=== PATIENT | female | born 1945 | race Hispanic/Latino ===

== ENCOUNTER 2017-09-04 14:38 | Inpatient (IN) | payer MEDICARE ==
[2017-09-04 19:24] VITALS: BMI 19.5
--- NOTE | 2017-09-04 21:46 | CP.PCM.HP ---
History of Present Illness - History of Present Illness History of Present Illness: PMD: Hawa Gary MD Chief complaint: Fall with pain to the left hip: The Patient was seen and examined on the Rehab Unit HPI: This is a 71 years old female with Hx of Scleraderma affecting the esophagus causing GIRD. 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 She under went a left Total Hip replacementon09/01/17 and is now transferred to the [facility] Re[facility] Unit for continued treatment and physical therapy. She refers mild lightheadedness. PMH: Scleroderma dx 23yeasr;HTN; Gird PSH: Appendectomy; Mitral valve repair; 4 finger fused fused on the right hand SH: No Alcohol; No illegal drug use; former smoker, live with family FH: State: No known family hx Allergies: NKDA Medication: Reviewed Present on Admission - Present on Admission Any Indicators Present on Admission: No History of DVT/PE: No History of Uncontrolled Diabetes: No Urinary Catheter: No Decubitus Ulcer Present: No Review of Systems - Constitutional Constitutional: absent: Anorexia, Chills, Fever, Headache, Lethargy - EENT Eyes: Requires Corrective Lenses. absent: Blurred Vision, Diplopia, Photophobia Ears: absent: Decreased Hearing, Ear Discharge, Tinnitus Nose/Mouth/Throat: absent: Epistaxis, Nasal Congestion, Nasal Discharge, Sinus Pain, Sinus Pressure - Cardiovascular Cardiovascular: absent: Chest Pain, Dyspnea, Edema, Leg Ulcers - Respiratory Respiratory: absent: Cough, Dyspnea, Wheezing, Stridor - Gastrointestinal Gastrointestinal: absent: Belching, Diarrhea, Nausea, Vomiting - Genitourinary Genitourinary: absent: Dysuria, Flank Pain, Urinary Frequency - Musculoskeletal Musculoskeletal: absent: Back Pain, Muscle Weakness, Stiffness - Integumentary Integumentary: absent: Pruritus, Rash, Skin Ulcer, Sores, Striae, Swelling - Neurological Neurological: absent: Confusion, Focal Weakness, Weakness - Psychiatric Psychiatric: absent: Anxiety, Depression, Panic Attacks - Endocrine Endocrine: absent: Palpitations, Polydipsia, Polyphagia, Polyuria - Hematologic/Lymphatic Hematologic: absent: Easy Bleeding, Easy Bruising Past Patient History - Past Medical History & Family History Past Medical History?: Yes - Past Social History Smoking Status: Former Smoker Chewing Tobacco Use: No Alcohol: None Drugs: Denies Home Situation {Lives}: With Family - CARDIAC Hx Hypotension: Yes - PULMONARY Hx Respiratory Disorders: No - NEUROLOGICAL Hx Neurological Disorder: No - HEENT Hx HEENT Problems: No - ENDOCRINE/METABOLIC Hx Endocrine Disorders: No - HEMATOLOGICAL/ONCOLOGICAL Hx Blood Disorders: No - INTEGUMENTARY Hx Dermatological Problems: No - MUSCULOSKELETAL/RHEUMATOLOGICAL Hx Musculoskeletal Disorders: Yes Other/Comment: Scleroderma - GASTROINTESTINAL Hx Gastroesophageal Reflux: Yes - GENITOURINARY/GYNECOLOGICAL Hx Genitourinary Disorders: No - PSYCHIATRIC Hx Psychophysiologic Disorder: No - SURGICAL HISTORY Hx Appendectomy: Yes - ANESTHESIA Hx Anesthesia: Yes Hx Anesthesia Reactions: No Meds Allergies/Adverse Reactions: Allergies Allergy/AdvReac Type Severity Reaction Status Date / Time No Known Allergies Allergy Verified 09/04/17 19:24 Physical Exam - Constitutional Appears: No Acute Distress - Head Exam Head Exam: ATRAUMATIC, NORMAL INSPECTION, NORMOCEPHALIC - Eye Exam Eye Exam: EOMI, Normal appearance Pupil Exam: PERRL - ENT Exam ENT Exam: Mucous Membranes Moist, Normal Exam - Neck Exam Neck exam: Positive for: Normal Inspection, Tenderness - Respiratory Exam Respiratory Exam: Rales, Rhonchi, Wheezes - Cardiovascular Exam Cardiovascular Exam: REGULAR RHYTHM, RRR, +S1, +S2. absent: Gallop, JVD - GI/Abdominal Exam GI & Abdominal Exam: Normal Bowel Sounds, Soft. absent: Mass, Organomegaly, Tenderness - Rectal Exam Rectal Exam: Deferred - Extremities Exam Additional comments: Left hip with post surgery Total Hip Replacemen dressing , cleadn and dry. - Back Exam Back exam: NORMAL INSPECTION. absent: CVA tenderness (L), CVA tenderness (R) - Neurological Exam Neurological exam: Alert, CN II-XII Intact, Oriented x3, Reflexes Normal - Psychiatric Exam Psychiatric exam: Normal Affect, Normal Mood - Skin Skin Exam: Dry, Intact, Normal Color, Warm Results - Labs Result Diagrams: 09/05/17 05:35 09/05/17 05:35 Assessment & Plan - Assessment and Plan (Free Text) Assessment: #. Right hip Fx s/p Left total hip replacement #. HTN #. Anxiety/Depressive disorder #. Anemia #, Hypekalemia #. Scleroderma Plan: 71 years old female with Hx of Scleraderma affecting the esophagus causing GIRD. 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 She under went a left Total Hip replacementon09/01/17 and is now transferred to the [facility] Unit for continued treatment and physical therapy. She refers mild lightheadedness. #. Right hip Fx s/p Left total hip replacement #. HTN - Amlopidine/Metoprolol/Lisinopril - Follow blood pressure #. Anxiety/Depressive disorder - Prozac #. Anemia - Iron panel - B12 - Folate - follow Hb #. Hyperkalemia - follow electrolytes #. Scleroderma affecting esophagus - Carafate/Pantoprazole #. DVT prophylaxis with Lovenox #. Code Status: Full - Date & Time Date: 09/04/17 Time: 21:46
[2017-09-04] MEDS: Pravastatin Sodium 40 MG TAB PO SCH (22:28)
[2017-09-04] MEDS: Metoprolol Succinate 50 mg XL Tab PO SCH (22:33)
[2017-09-05] MEDS: Pantoprazole 40 mg Susp UD PO SCH (05:49)
[2017-09-05 06:40] LABS: BASO % 0.3 % (0.0-2.0); EOS # 0.1 K/uL (0.0-0.7); EOS % 1.2 % (0.0-4.0); LYMPH # 1.5 K/uL (1.0-4.3); LYMPH % 31.4 % (20.0-40.0); MEAN CELL VOLUME 85.4 fl (81.0-99.0); MEAN CORPUSCULAR HEMOGLOBIN 28.7 pg (27.0-31.0); MEAN CORPUSCULAR HGB CONC 33.7 g/dL (33.0-37.0); MEAN PLATELET VOLUME 9.2 fl (7.2-11.7); MONO # 0.5 K/uL (0.0-0.8); MONO % 11.2 % (0.0-10.0); NEUT # 2.7 K/uL (1.8-7.0); NEUT % 55.9 % (50.0-75.0); NRBC % 0.1 % (0.0-0.0); RBC 3.13 Mil/uL (3.80-5.20); RED CELL DISTRIBUTION WIDTH 14.7 % (11.5-14.5); WHITE BLOOD COUNT 4.9 K/uL (4.8-10.8)
[2017-09-05 06:43] LABS: INR 1.1 (0.9-1.2); PARTIAL THROMBOPLASTIN TIME 34.2 Seconds (25.6-37.1); PROTHROMBIN TIME 11.9 Seconds (9.8-13.1)
[2017-09-05 06:44] LABS: ALBUMIN 3.7 g/dL (3.5-5.0); ALT/SGPT 21 U/L (9-52); AST/SGOT 27 U/L (14-36); BLOOD UREA NITROGEN 10 mg/dl (7-17); CALCIUM 8.9 mg/dL (8.4-10.2); GFR AFRICAN-AMERICAN > 60; GFR NON-AFRICAN AMERICAN > 60
[2017-09-05] MEDS ORDERED: Enoxaparin 40 mg Syringe SC SCH (09:00)
[2017-09-05] MEDS: Enoxaparin 40 mg Syringe SC SCH (09:55)
--- NOTE | 2017-09-05 13:35 | PSY.TMCNF ---
Nursing - Vital Signs Vital Signs (Last 8 hours): Vital Signs 09/05/17 09/05/17 09/05/17 08:27 08:28 09:00 Temperature Pulse Rate 70 70 70 Respiratory Rate Blood Pressure 129/66 129/69 129/69 O2 Sat by Pulse Oximetry 09/05/17 10:00 Temperature 96 F L Pulse Rate 75 Respiratory 20 Rate Blood Pressure 129/79 O2 Sat by Pulse 98 Oximetry Pain: 0 - Medications/Other Issues Comment: Pt at high nutritional risk. goals: 1. Pt to consume 75-100% of meals. 2. Deter wt loss. Follow-up due on 09/10/2017 - Bladder Management Bladder Pattern: Normal - Bowel Management Bowel Pattern: Normal Physical Therapy - Ambulation Distance (ft.): 120 - Pain Management Techniques: Inactivity Occupational Therapy - Arousal/Attention/Orientation Patient Orientation: Person, Place, Time - Pain Alleviating Techniques: Inactivity Nutrition - Current Diet Current Diet/ Supplement/ Feedings: Heart healthy diet ensure plus 8 ounces 2 per day - Appetite Percent Meal Consumed: 50-74% - Assessment/Goals/Time Frame Assessment/Goals/Time Frame: Pt at high nutritional risk. goals: 1. Pt to consume 75-100% of meals. 2. Deter wt loss. Follow-up due on 09/10/2017 - Provider Provider: Oumou Ruiz RD Case Management - Discharge Plan Discharge Plan: Home with significant other/family Rehabilitation Plan - Treatment Plan Treatment Plan: Physical Therapy, Occupational Therapy, Dietary, Patient/Family Education - Discharge Plan Discharge to: Home
--- NOTE | 2017-09-05 14:14 | CP.PCM.CON ---
History of Present Illness - History of Present Illness History of Present Illness: Dr Power PMR consultation on Taniya Fagan, born 1945 who has been admitted to [facility] for acute inpatient rehabilitation. She had fallen and suffered a right hip fracture and underwent ORIF. Post op making great progress and on only tylenol for pain. She suffers from Scleroderma and has had finger fusion. She has some organ involvement as well of GI and lungs. + weight loss Review of Systems - Constitutional Constitutional: Weight Loss. absent: Daytime Sleepiness, Excessive Sweating, Headache - EENT Eyes: absent: Blurred Vision Ears: absent: Ear Discharge Nose/Mouth/Throat: absent: Nasal Congestion - Cardiovascular Cardiovascular: absent: Chest Pain - Respiratory Respiratory: absent: Dyspnea - Gastrointestinal Gastrointestinal: absent: Abdominal Pain - Musculoskeletal Musculoskeletal: Deformity. absent: Back Pain, Numbness - Integumentary Integumentary: absent: Bleeding Lesions - Neurological Neurological: absent: Abnormal Movements Past Patient History - Past Medical History & Family History Past Medical History?: Yes - Past Social History Smoking Status: Former Smoker Chewing Tobacco Use: No Alcohol: None Drugs: Denies Home Situation {Lives}: With Family - CARDIAC Hx Hypotension: Yes - PULMONARY Hx Respiratory Disorders: No - NEUROLOGICAL Hx Neurological Disorder: No - HEENT Hx HEENT Problems: No - ENDOCRINE/METABOLIC Hx Endocrine Disorders: No - HEMATOLOGICAL/ONCOLOGICAL Hx Blood Disorders: No - INTEGUMENTARY Hx Dermatological Problems: No - MUSCULOSKELETAL/RHEUMATOLOGICAL Hx Musculoskeletal Disorders: Yes Other/Comment: Scleroderma - GASTROINTESTINAL Hx Gastroesophageal Reflux: Yes - GENITOURINARY/GYNECOLOGICAL Hx Genitourinary Disorders: No - PSYCHIATRIC Hx Psychophysiologic Disorder: No - SURGICAL HISTORY Hx Appendectomy: Yes - ANESTHESIA Hx Anesthesia: Yes Hx Anesthesia Reactions: No Meds Allergies/Adverse Reactions: Allergies Allergy/AdvReac Type Severity Reaction Status Date / Time No Known Allergies Allergy Verified 09/04/17 19:24 - Medications Medications: Current Medications Acetaminophen (Tylenol 325mg Tab) 650 mg PO Q6 PRN PRN Reason: Other Last Admin: 09/05/17 11:10 Dose: 650 mg Alprazolam (Xanax) 0.25 mg PO HS PRN PRN Reason: Insomnia Stop: 09/11/17 21:27 Last Admin: 09/04/17 22:28 Dose: 0.25 mg Amlodipine Besylate (Norvasc) 5 mg PO BID [facility] Last Admin: 09/05/17 08:28 Dose: 5 mg Aspirin (Aspirin Chewable) 81 mg PO DAILY [facility] Last Admin: 09/05/17 08:28 Dose: 81 mg Enoxaparin Sodium (Lovenox) 40 mg SC DAILY [facility] PRN Reason: Protocol Last Admin: 09/05/17 09:55 Dose: 40 mg Fluoxetine HCl (Prozac) 20 mg PO DAILY [facility] Last Admin: 09/05/17 08:28 Dose: 20 mg Lisinopril (Zestril) 10 mg PO DAILY [facility] Last Admin: 09/05/17 08:27 Dose: 10 mg Metoprolol Succinate (Toprol Xl) 50 mg PO [facility] Last Admin: 09/04/17 22:33 Dose: Not Given Ondansetron HCl (Zofran Tab) 4 mg PO Q4 PRN PRN Reason: Nausea/Vomiting Pantoprazole Sodium (Protonix Susp) 40 mg PO DAILY@0630 [facility] Last Admin: 09/05/17 05:49 Dose: 40 mg Pravastatin Sodium (Pravachol) 40 mg PO [facility] Last Admin: 09/04/17 22:28 Dose: 40 mg Sucralfate (Carafate Tab) 1 gm PO BID [facility] Last Admin: 09/05/17 08:27 Dose: 1 gm Tramadol HCl (Ultram) 50 mg PO Q6 PRN PRN Reason: Pain, severe (8-10) Physical Exam - Constitutional Appears: Non-toxic, No Acute Distress - Head Exam Head Exam: ATRAUMATIC, NORMAL INSPECTION, NORMOCEPHALIC - Eye Exam Eye Exam: EOMI - ENT Exam ENT Exam: Mucous Membranes Moist - Respiratory Exam Respiratory Exam: NORMAL BREATHING PATTERN - Cardiovascular Exam Cardiovascular Exam: REGULAR RHYTHM - GI/Abdominal Exam GI & Abdominal Exam: absent: Distended - Extremities Exam Extremities exam: Negative for: calf tenderness - Neurological Exam Neurological exam: Alert, CN II-XII Intact, Oriented x3 - Psychiatric Exam Psychiatric exam: Normal Affect, Normal Mood - Skin Skin Exam: Warm Results - Vital Signs Recent Vital Signs: Last Vital Signs Temp 96 F L 09/05/17 10:00 Pulse 75 09/05/17 10:00 Resp 20 09/05/17 10:00 BP 129/79 09/05/17 10:00 Pulse Ox 98 09/05/17 10:00 - Labs Result Diagrams: 09/05/17 05:35 09/05/17 05:35 Labs: Laboratory Results - last 24 hr 09/05/17 09/05/17 09/05/17 05:35 05:35 05:35 WBC 4.9 RBC 3.13 L Hgb 9.0 L Hct 26.7 L MCV 85.4 MCH 28.7 MCHC 33.7 RDW 14.7 H Plt Count 136 MPV 9.2 Neut % (Auto) 55.9 Lymph % (Auto) 31.4 Nye % (Auto) 11.2 H Eos % (Auto) 1.2 Baso % (Auto) 0.3 Neut # (Auto) 2.7 Lymph # (Auto) 1.5 Nye # (Auto) 0.5 Eos # (Auto) 0.1 Baso # (Auto) 0.0 PT 11.9 INR 1.1 APTT 34.2 Sodium 141 Potassium 5.2 H Chloride 107 Carbon Dioxide 22 Anion Gap 17 BUN 10 Creatinine 0.7 Est GFR ( Amer) > 60 Est GFR (Non-Af Amer) > 60 Random Glucose 96 Calcium 8.9 Total Bilirubin 1.6 H AST 27 ALT 21 Alkaline Phosphatase 66 Total Protein 7.2 Albumin 3.7 Globulin 3.5 Albumin/Globulin Ratio 1.0 Vitamin B12 09/05/17 10:28 WBC RBC Hgb Hct MCV MCH MCHC RDW Plt Count MPV Neut % (Auto) Lymph % (Auto) Nye % (Auto) Eos % (Auto) Baso % (Auto) Neut # (Auto) Lymph # (Auto) Nye # (Auto) Eos # (Auto) Baso # (Auto) PT INR APTT Sodium Potassium Chloride Carbon Dioxide Anion Gap BUN Creatinine Est GFR ( Amer) Est GFR (Non-Af Amer) Random Glucose Calcium Total Bilirubin AST ALT Alkaline Phosphatase Total Protein Albumin Globulin Albumin/Globulin Ratio Vitamin B12 974 H Assessment & Plan - Assessment and Plan (Free Text) Assessment: Patient with right hip ORIF doing very well Impairment code: 08.11 PT/OT to continue to help increase functional independence Team conference for d/c planning Pain: controlled Vascular: no evidence of DVT GI: No evidence of constipation or diarrhea Patient is an excellent acute rehabilitation candidate and will have focused pain management, wound care, PT, OT and recreational therapy to help facilitate a safe and appropriate d/c plan
--- NOTE | 2017-09-05 14:28 | PCM.OPOC ---
Physiatry Overall Plan of Care - Overall Plan of Care Estimated Length of Stay in Weeks: 2 Rehab Impairment: Mobility, Gait, Balance, Coordination Etiologic Diagnosis: Hip/Knee Surgery Rehab/Medical Prognosis: Good - Anticipated Interventions Physical Therapy:: Yes Occupational Therapy:: Yes Speech Therapy:: No Recreational Therapy:: Yes - Therapy Goals Bed Mobility: Supervision Ambulation: Supervision Functional Positional Changes:: Supervision - Discharge Plan Discharge Destination: Home
[2017-09-05] MEDS: Metoprolol Succinate 50 mg XL Tab PO SCH (21:41)
[2017-09-05] MEDS: Pravastatin Sodium 40 MG TAB PO SCH (21:41)
[2017-09-05 22:23] LABS: FOLATE > 20.0 ng/mL
[2017-09-06] MEDS: Pantoprazole 40 mg Susp UD PO SCH (07:00)
[2017-09-06] MEDS: Enoxaparin 40 mg Syringe SC SCH (08:41)
--- NOTE | 2017-09-06 15:28 | CP.PCM.PN ---
Subjective - Date & Time of Evaluation Date of Evaluation: 09/06/17 Time of Evaluation: 15:26 - Subjective Subjective: doing well with PT pain under control Objective - Vital Signs/Intake and Output Vital Signs (last 24 hours): Temp Pulse Resp BP Pulse Ox 98.2 F 84 22 109/61 100 09/06/17 08:39 09/06/17 08:41 09/06/17 08:39 09/06/17 08:41 09/06/17 08:39 - Medications Medications: Current Medications Acetaminophen (Tylenol 325mg Tab) 650 mg PO Q6 PRN PRN Reason: Other Last Admin: 09/06/17 08:43 Dose: 650 mg Alprazolam (Xanax) 0.25 mg PO HS PRN PRN Reason: Insomnia Stop: 09/11/17 21:27 Last Admin: 09/05/17 22:01 Dose: 0.25 mg Amlodipine Besylate (Norvasc) 5 mg PO BID [facility] Last Admin: 09/06/17 08:41 Dose: Not Given Aspirin (Aspirin Chewable) 81 mg PO DAILY [facility] Last Admin: 09/06/17 08:40 Dose: 81 mg Enoxaparin Sodium (Lovenox) 40 mg SC DAILY [facility] PRN Reason: Protocol Last Admin: 09/06/17 08:41 Dose: 40 mg Fluoxetine HCl (Prozac) 20 mg PO DAILY [facility] Last Admin: 09/06/17 08:41 Dose: 20 mg Lisinopril (Zestril) 10 mg PO DAILY [facility] Last Admin: 09/06/17 08:41 Dose: Not Given Metoprolol Succinate (Toprol Xl) 50 mg PO HS [facility] Last Admin: 09/05/17 21:41 Dose: 50 mg Ondansetron HCl (Zofran Tab) 4 mg PO Q4 PRN PRN Reason: Nausea/Vomiting Pantoprazole Sodium (Protonix Susp) 40 mg PO DAILY@0630 [facility] Last Admin: 09/06/17 07:00 Dose: 40 mg Pravastatin Sodium (Pravachol) 40 mg PO HS [facility] Last Admin: 09/05/17 21:41 Dose: 40 mg Sucralfate (Carafate Tab) 1 gm PO BID [facility] Last Admin: 09/06/17 08:40 Dose: 1 gm Tramadol HCl (Ultram) 50 mg PO Q6 PRN PRN Reason: Pain, severe (8-10) - Labs Labs: 09/05/17 05:35 09/05/17 17:44 PT 11.9 Seconds (9.8-13.1) 09/05/17 05:35 INR 1.1 (0.9-1.2) 09/05/17 05:35 APTT 34.2 Seconds (25.6-37.1) 09/05/17 05:35 - Constitutional Appears: Well, Non-toxic, No Acute Distress - Head Exam Head Exam: ATRAUMATIC, NORMAL INSPECTION - Eye Exam Eye Exam: Normal appearance Pupil Exam: NORMAL ACCOMODATION - ENT Exam ENT Exam: Mucous Membranes Moist - Neck Exam Neck Exam: Full ROM - Respiratory Exam Respiratory Exam: Clear to Ausculation Bilateral, NORMAL BREATHING PATTERN. absent: Rales, Rhonchi, Wheezes - Cardiovascular Exam Cardiovascular Exam: REGULAR RHYTHM, +S1, +S2 - GI/Abdominal Exam GI & Abdominal Exam: Soft, Normal Bowel Sounds. absent: Tenderness, Organomegaly, Rebound - Extremities Exam Extremities Exam: absent: Normal Inspection Additional comments: classic scleroderma upper ext fingers bilaterally - Neurological Exam Neurological Exam: Alert, Awake, Oriented x3 - Psychiatric Exam Psychiatric exam: Normal Affect - Skin Skin Exam: Normal Color Assessment and Plan - Assessment and Plan (Free Text) Assessment: 1. Right hip Fx s/p Left total hip replacement 2. HTN 3. Anxiety/Depressive disorder 4. Anemia 5, Hypekalemia 6. Scleroderma Plan: 71 years old female with Hx of Scleraderma affecting the esophagus causing GERD. 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 She under went a left Total Hip replacementon09/01/17 and is now transferred to the [facility] Rehab Unit for continued treatment and physical therapy. She refers mild lightheadedness. 1. Right hip Fx s/p Left total hip replacement 2. HTN - Amlopidine/Metoprolol/Lisinopril - blood pressure under control 3. Anxiety/Depressive disorder - Prozac 4. Anemia stable - Iron panel - B12 - Folate 5. Hyperkalemia - resolved 6. Scleroderma affecting esophagus - Carafate/Pantoprazole 7. DVT prophylaxis with Lovenox
[2017-09-06] MEDS: Pravastatin Sodium 40 MG TAB PO SCH (22:57)
[2017-09-06] MEDS: Metoprolol Succinate 50 mg XL Tab PO SCH (22:58)
[2017-09-07] MEDS: Pantoprazole 40 mg Susp UD PO SCH (06:30)
[2017-09-07] MEDS: Enoxaparin 40 mg Syringe SC SCH (08:04)
--- NOTE | 2017-09-07 18:23 | CP.PCM.PN ---
Subjective - Date & Time of Evaluation Date of Evaluation: 09/07/17 Time of Evaluation: 18:22 - Subjective Subjective: Patient seen in the room, doing very well and is extremely pleased with her progress and care to this point very optimistic that by next monday she will be able to d/c with just a SC or even no AD Objective - Vital Signs/Intake and Output Vital Signs (last 24 hours): Temp Pulse Resp BP Pulse Ox 97.5 F L 79 18 123/69 100 09/07/17 08:05 09/07/17 17:12 09/07/17 08:05 09/07/17 17:12 09/07/17 08:05 - Medications Medications: Current Medications Acetaminophen (Tylenol 325mg Tab) 650 mg PO Q6 PRN PRN Reason: Other Last Admin: 09/07/17 16:09 Dose: 650 mg Alprazolam (Xanax) 0.25 mg PO HS PRN PRN Reason: Insomnia Stop: 09/11/17 21:27 Last Admin: 09/06/17 22:58 Dose: 0.25 mg Amlodipine Besylate (Norvasc) 5 mg PO BID [facility] Last Admin: 09/07/17 17:12 Dose: 5 mg Aspirin (Aspirin Chewable) 81 mg PO DAILY [facility] Last Admin: 09/07/17 09:11 Dose: 81 mg Enoxaparin Sodium (Lovenox) 40 mg SC DAILY [facility] PRN Reason: Protocol Last Admin: 09/07/17 08:04 Dose: 40 mg Fluoxetine HCl (Prozac) 20 mg PO DAILY [facility] Last Admin: 09/07/17 08:05 Dose: 20 mg Lisinopril (Zestril) 10 mg PO DAILY [facility] Last Admin: 09/07/17 09:11 Dose: 10 mg Metoprolol Succinate (Toprol Xl) 50 mg PO HS [facility] Last Admin: 09/06/17 22:58 Dose: Not Given Ondansetron HCl (Zofran Tab) 4 mg PO Q4 PRN PRN Reason: Nausea/Vomiting Pantoprazole Sodium (Protonix Susp) 40 mg PO DAILY@0630 [facility] Last Admin: 09/07/17 06:30 Dose: 40 mg Pravastatin Sodium (Pravachol) 40 mg PO HS [facility] Last Admin: 09/06/17 22:57 Dose: 40 mg Sucralfate (Carafate Tab) 1 gm PO BID [facility] Last Admin: 09/07/17 17:14 Dose: Not Given Tramadol HCl (Ultram) 50 mg PO Q6 PRN PRN Reason: Pain, severe (8-10) - Labs Labs: 09/05/17 05:35 09/05/17 17:44 PT 11.9 Seconds (9.8-13.1) 09/05/17 05:35 INR 1.1 (0.9-1.2) 09/05/17 05:35 APTT 34.2 Seconds (25.6-37.1) 09/05/17 05:35
[2017-09-07] MEDS: Pravastatin Sodium 40 MG TAB PO SCH (21:25)
[2017-09-07] MEDS: Metoprolol Succinate 50 mg XL Tab PO SCH (21:27)
[2017-09-08] MEDS: Pantoprazole 40 mg Susp UD PO SCH (06:08)
[2017-09-08 06:22] LABS: HEMOGLOBIN 8.7 g/dL (12.0-16.0); MEAN CELL VOLUME 85.5 fl (81.0-99.0); MEAN CORPUSCULAR HEMOGLOBIN 28.6 pg (27.0-31.0); MEAN CORPUSCULAR HGB CONC 33.5 g/dL (33.0-37.0); RBC 3.02 Mil/uL (3.80-5.20); RED CELL DISTRIBUTION WIDTH 14.6 % (11.5-14.5); WHITE BLOOD COUNT 6.3 K/uL (4.8-10.8)
[2017-09-08 06:39] LABS: BLOOD UREA NITROGEN 15 mg/dl (7-17); CALCIUM 8.9 mg/dL (8.4-10.2); GFR AFRICAN-AMERICAN > 60; GFR NON-AFRICAN AMERICAN > 60
[2017-09-08] MEDS: Enoxaparin 40 mg Syringe SC SCH (08:30)
--- NOTE | 2017-09-08 13:29 | CP.PCM.PN ---
Subjective - Date & Time of Evaluation Date of Evaluation: 09/08/17 Time of Evaluation: 13:27 - Subjective Subjective: Patient seen in the room doing ok good right hip flexion pain is negligible at this time showered excellent rehab candidate continue current care Objective - Vital Signs/Intake and Output Vital Signs (last 24 hours): Temp Pulse Resp BP Pulse Ox 98.4 F 104 H 20 118/70 99 09/08/17 08:37 09/08/17 08:37 09/08/17 08:37 09/08/17 08:37 09/08/17 08:37 - Medications Medications: Current Medications Acetaminophen (Tylenol 325mg Tab) 650 mg PO Q6 PRN PRN Reason: Other Last Admin: 09/08/17 09:52 Dose: 650 mg Alprazolam (Xanax) 0.25 mg PO HS PRN PRN Reason: Insomnia Stop: 09/11/17 21:27 Last Admin: 09/07/17 21:29 Dose: 0.25 mg Amlodipine Besylate (Norvasc) 5 mg PO BID [facility] Last Admin: 09/08/17 08:28 Dose: Not Given Aspirin (Aspirin Chewable) 81 mg PO DAILY [facility] Last Admin: 09/08/17 08:30 Dose: 81 mg Fluoxetine HCl (Prozac) 20 mg PO DAILY [facility] Last Admin: 09/08/17 08:30 Dose: 20 mg Lisinopril (Zestril) 10 mg PO DAILY [facility] Last Admin: 09/08/17 08:28 Dose: Not Given Metoprolol Succinate (Toprol Xl) 50 mg PO HS [facility] Last Admin: 09/07/17 21:27 Dose: Not Given Ondansetron HCl (Zofran Tab) 4 mg PO Q4 PRN PRN Reason: Nausea/Vomiting Pantoprazole Sodium (Protonix Susp) 40 mg PO DAILY@0630 [facility] Last Admin: 09/08/17 06:08 Dose: 40 mg Pravastatin Sodium (Pravachol) 40 mg PO HS [facility] Last Admin: 09/07/17 21:25 Dose: 40 mg Sucralfate (Carafate Tab) 1 gm PO DAILY [facility] Tramadol HCl (Ultram) 50 mg PO Q6 PRN PRN Reason: Pain, severe (8-10) Last Admin: 09/08/17 13:20 Dose: 50 mg - Labs Labs: 09/08/17 05:30 09/08/17 05:30 PT 11.9 Seconds (9.8-13.1) 09/05/17 05:35 INR 1.1 (0.9-1.2) 09/05/17 05:35 APTT 34.2 Seconds (25.6-37.1) 09/05/17 05:35
--- NOTE | 2017-09-08 14:15 | CP.PCM.PN ---
Subjective - Date & Time of Evaluation Date of Evaluation: 09/08/17 Time of Evaluation: 11:00 - Subjective Subjective: Patient seen and examined. Claimed she was doing well. Objective - Vital Signs/Intake and Output Vital Signs (last 24 hours): Temp Pulse Resp BP Pulse Ox 98.4 F 104 H 20 118/70 99 09/08/17 08:37 09/08/17 08:37 09/08/17 08:37 09/08/17 08:37 09/08/17 08:37 - Medications Medications: Current Medications Acetaminophen (Tylenol 325mg Tab) 650 mg PO Q6 PRN PRN Reason: Other Last Admin: 09/08/17 09:52 Dose: 650 mg Alprazolam (Xanax) 0.25 mg PO HS PRN PRN Reason: Insomnia Stop: 09/11/17 21:27 Last Admin: 09/07/17 21:29 Dose: 0.25 mg Amlodipine Besylate (Norvasc) 5 mg PO BID [facility] Last Admin: 09/08/17 08:28 Dose: Not Given Aspirin (Aspirin Chewable) 81 mg PO DAILY [facility] Last Admin: 09/08/17 08:30 Dose: 81 mg Fluoxetine HCl (Prozac) 20 mg PO DAILY [facility] Last Admin: 09/08/17 08:30 Dose: 20 mg Lisinopril (Zestril) 10 mg PO DAILY [facility] Last Admin: 09/08/17 08:28 Dose: Not Given Metoprolol Succinate (Toprol Xl) 50 mg PO HS [facility] Last Admin: 09/07/17 21:27 Dose: Not Given Ondansetron HCl (Zofran Tab) 4 mg PO Q4 PRN PRN Reason: Nausea/Vomiting Pantoprazole Sodium (Protonix Susp) 40 mg PO DAILY@0630 [facility] Last Admin: 09/08/17 06:08 Dose: 40 mg Pravastatin Sodium (Pravachol) 40 mg PO HS [facility] Last Admin: 09/07/17 21:25 Dose: 40 mg Sucralfate (Carafate Tab) 1 gm PO DAILY [facility] Tramadol HCl (Ultram) 50 mg PO Q6 PRN PRN Reason: Pain, severe (8-10) Last Admin: 09/08/17 13:20 Dose: 50 mg - Labs Labs: 09/08/17 05:30 09/08/17 05:30 PT 11.9 Seconds (9.8-13.1) 09/05/17 05:35 INR 1.1 (0.9-1.2) 09/05/17 05:35 APTT 34.2 Seconds (25.6-37.1) 09/05/17 05:35 - Constitutional Appears: No Acute Distress - Head Exam Head Exam: ATRAUMATIC - Eye Exam Eye Exam: absent: Scleral icterus - ENT Exam ENT Exam: Mucous Membranes Moist - Neck Exam Neck Exam: absent: Meningismus - Respiratory Exam Respiratory Exam: absent: Rales, Rhonchi, Wheezes, Respiratory Distress - Cardiovascular Exam Cardiovascular Exam: REGULAR RHYTHM, +S1, +S2 - GI/Abdominal Exam GI & Abdominal Exam: Soft. absent: Tenderness - Rectal Exam Rectal Exam: Deferred - Neurological Exam Neurological Exam: Alert, Oriented x3 - Psychiatric Exam Psychiatric exam: Normal Affect - Skin Skin Exam: Dry, Intact Assessment and Plan - Assessment and Plan (Free Text) Assessment: 71 yo female with history of Scleroderma associated with GERD had ORIF at [facility] in [place] on 09/01/17 after sustaining left hip fracture secondary to a fall. She was transferred to [facility] and admitted at Acute [facility]hab to continue her PT/OT. 1. Post ORIF of Left Hip Fracture pain well controlled physiatry consult with Dr Power continue PT/OT 2. HTN BP stable continue Amlopidine/Metoprolol/Lisinopril 3. Anxiety/Depressive disorder continue Prozac 4. Anemia probably secondary to blood loss Hgb: 8.7 FeSO4 325mg PO BID 5. Scleroderma affecting esophagus - Carafate/Pantoprazole 6. DVT prophylaxis continue Lovenox
[2017-09-08] MEDS: Metoprolol Succinate 50 mg XL Tab PO SCH (21:15)
[2017-09-08] MEDS: Pravastatin Sodium 40 MG TAB PO SCH (21:15)
[2017-09-09] MEDS: Pantoprazole 40 mg Susp UD PO SCH (06:29)
[2017-09-09] MEDS: Enoxaparin 40 mg Syringe SC SCH (08:00)
--- NOTE | 2017-09-09 13:50 | CP.PCM.PN ---
Subjective - Date & Time of Evaluation Date of Evaluation: 09/09/17 Time of Evaluation: 13:49 - Subjective Subjective: patient seen in the room with friends present very happy with continued progress denies sob/cp ambulating the halls on her own with a walker improving endurance and pain is not an issue Objective - Vital Signs/Intake and Output Vital Signs (last 24 hours): Temp Pulse Resp BP Pulse Ox 97.9 F 69 18 126/63 100 09/09/17 08:05 09/09/17 08:05 09/09/17 08:05 09/09/17 08:05 09/09/17 08:05 - Medications Medications: Current Medications Acetaminophen (Tylenol 325mg Tab) 650 mg PO Q6 PRN PRN Reason: Other Last Admin: 09/09/17 07:59 Dose: 650 mg Alprazolam (Xanax) 0.25 mg PO HS PRN PRN Reason: Insomnia Stop: 09/11/17 21:27 Last Admin: 09/08/17 22:24 Dose: 0.25 mg Amlodipine Besylate (Norvasc) 5 mg PO BID [facility] Last Admin: 09/09/17 07:59 Dose: 5 mg Aspirin (Aspirin Chewable) 81 mg PO DAILY [facility] Last Admin: 09/09/17 08:00 Dose: 81 mg Enoxaparin Sodium (Lovenox) 40 mg SC DAILY [facility] PRN Reason: Protocol Last Admin: 09/09/17 08:00 Dose: 40 mg Fluoxetine HCl (Prozac) 20 mg PO DAILY [facility] Last Admin: 09/09/17 08:00 Dose: 20 mg Lisinopril (Zestril) 10 mg PO DAILY [facility] Last Admin: 09/09/17 08:00 Dose: 10 mg Metoprolol Succinate (Toprol Xl) 50 mg PO HS [facility] Last Admin: 09/08/17 21:15 Dose: 50 mg Ondansetron HCl (Zofran Tab) 4 mg PO Q4 PRN PRN Reason: Nausea/Vomiting Pantoprazole Sodium (Protonix Susp) 40 mg PO DAILY@0630 [facility] Last Admin: 09/09/17 06:29 Dose: 40 mg Pravastatin Sodium (Pravachol) 40 mg PO HS [facility] Last Admin: 09/08/17 21:15 Dose: 40 mg Sucralfate (Carafate Tab) 1 gm PO DAILY [facility] Last Admin: 09/09/17 08:00 Dose: 1 gm Tramadol HCl (Ultram) 50 mg PO Q6 PRN PRN Reason: Pain, severe (8-10) Last Admin: 09/08/17 13:20 Dose: 50 mg - Labs Labs: 09/08/17 05:30 09/08/17 05:30 PT 11.9 Seconds (9.8-13.1) 09/05/17 05:35 INR 1.1 (0.9-1.2) 09/05/17 05:35 APTT 34.2 Seconds (25.6-37.1) 09/05/17 05:35
[2017-09-09] MEDS: Metoprolol Succinate 50 mg XL Tab PO SCH (21:23)
[2017-09-09] MEDS: Pravastatin Sodium 40 MG TAB PO SCH (21:24)
[2017-09-10] MEDS: Pantoprazole 40 mg Susp UD PO SCH (07:07)
[2017-09-10] MEDS: Enoxaparin 40 mg Syringe SC SCH (08:18)
[2017-09-10] MEDS: Pravastatin Sodium 40 MG TAB PO SCH (21:53)
[2017-09-10] MEDS: Metoprolol Succinate 50 mg XL Tab PO SCH (21:53)
[2017-09-11] MEDS: Pantoprazole 40 mg Susp UD PO SCH (06:16)
[2017-09-11 06:29] LABS: HEMOGLOBIN 8.9 g/dL (12.0-16.0); MEAN CELL VOLUME 86.6 fl (81.0-99.0); MEAN CORPUSCULAR HEMOGLOBIN 28.9 pg (27.0-31.0); MEAN CORPUSCULAR HGB CONC 33.4 g/dL (33.0-37.0); RBC 3.08 Mil/uL (3.80-5.20); RED CELL DISTRIBUTION WIDTH 15.1 % (11.5-14.5); WHITE BLOOD COUNT 6.1 K/uL (4.8-10.8)
[2017-09-11 06:40] LABS: BLOOD UREA NITROGEN 14 mg/dl (7-17); CALCIUM 8.8 mg/dL (8.4-10.2); GFR AFRICAN-AMERICAN > 60; GFR NON-AFRICAN AMERICAN > 60
[2017-09-11] MEDS: Enoxaparin 40 mg Syringe SC SCH (08:57)
--- NOTE | 2017-09-11 16:19 | CP.PCM.PN ---
Subjective - Date & Time of Evaluation Date of Evaluation: 09/11/17 Time of Evaluation: 12:00 - Subjective Subjective: Patient seen and examined while resting in bed. States that she is "doing great ". Has no complaints at present. Objective - Vital Signs/Intake and Output Vital Signs (last 24 hours): Temp Pulse Resp BP Pulse Ox 98.3 F 74 22 110/58 L 97 09/11/17 08:47 09/11/17 08:59 09/11/17 08:47 09/11/17 08:59 09/11/17 08:47 - Medications Medications: Current Medications Acetaminophen (Tylenol 325mg Tab) 650 mg PO Q6 PRN PRN Reason: Other Last Admin: 09/11/17 14:01 Dose: 650 mg Alprazolam (Xanax) 0.25 mg PO HS PRN PRN Reason: Insomnia Stop: 09/17/17 22:01 Last Admin: 09/10/17 21:52 Dose: 0.25 mg Amlodipine Besylate (Norvasc) 5 mg PO BID [facility] Last Admin: 09/11/17 08:58 Dose: Not Given Aspirin (Aspirin Chewable) 81 mg PO DAILY [facility] Last Admin: 09/11/17 08:58 Dose: 81 mg Enoxaparin Sodium (Lovenox) 40 mg SC DAILY [facility] PRN Reason: Protocol Last Admin: 09/11/17 08:57 Dose: 40 mg Fluoxetine HCl (Prozac) 20 mg PO DAILY [facility] Last Admin: 09/11/17 08:58 Dose: 20 mg Lisinopril (Zestril) 10 mg PO DAILY [facility] Last Admin: 09/11/17 08:59 Dose: Not Given Metoprolol Succinate (Toprol Xl) 50 mg PO HS [facility] Last Admin: 09/10/17 21:53 Dose: 50 mg Ondansetron HCl (Zofran Tab) 4 mg PO Q4 PRN PRN Reason: Nausea/Vomiting Pantoprazole Sodium (Protonix Susp) 40 mg PO DAILY@0630 [facility] Last Admin: 09/11/17 06:16 Dose: 40 mg Pravastatin Sodium (Pravachol) 40 mg PO HS [facility] Last Admin: 09/10/17 21:53 Dose: 40 mg Sucralfate (Carafate Tab) 1 gm PO DAILY [facility] Last Admin: 09/11/17 08:58 Dose: 1 gm Tramadol HCl (Ultram) 50 mg PO Q6 PRN PRN Reason: Pain, severe (8-10) - Labs Labs: 09/11/17 05:00 09/11/17 05:00 PT 11.9 Seconds (9.8-13.1) 09/05/17 05:35 INR 1.1 (0.9-1.2) 09/05/17 05:35 APTT 34.2 Seconds (25.6-37.1) 09/05/17 05:35 - Additional Findings Additional findings: Physical exam: Constitutional- cooperative, awake, alert Head- NCAT, PERRL Eye- PERRL, EOMI ENT- normal exam, MMM. Neck- normal inspection, supple, no JVD Respiratory- CTAB, no wheezes rales rhonchi Cardiovascular- RRR, +S1, +S2 no MRG GI/Abdominal- normal bowel sounds, soft, no mass, no hsm Skin- warm, dry Extremities Exam- normal capillary refill, normal inspection, ambulates w/ walker Neurological Exam- alert, awake, oriented Psych- normal mood, normal affect Assessment and Plan - Assessment and Plan (Free Text) Plan: 71 yo female with history of Scleroderma associated with GERD had ORIF at [facility] in [place] on 09/01/17 after sustaining left hip fracture secondary to a fall. She was transferred to [facility] and admitted at Acute Rehab to continue her PT/OT. 1. Post ORIF of Left Hip Fracture pain well controlled physiatry consult with Dr Power continue PT/OT 2. HTN BP stable continue Amlopidine/Metoprolol/Lisinopril 3. Anxiety/Depressive disorder continue Prozac 4. Anemia probably secondary to blood loss Hgb: 8.7--> 8.9, stable FeSO4 325mg PO BID 5. Scleroderma affecting esophagus - Carafate/Pantoprazole 6. DVT prophylaxis continue Lovenox
--- NOTE | 2017-09-11 18:42 | CP.PCM.PN ---
Subjective - Date & Time of Evaluation Date of Evaluation: 09/11/17 Time of Evaluation: 18:40 - Subjective Subjective: Patient seen in the room continues to make excellent gains did car transfers today no sob/cp no hip pain brandy present not sure of the date she will follow up with ortho if needed I offered to remove them prior to d/c home surgery was 09/01/17 Objective - Vital Signs/Intake and Output Vital Signs (last 24 hours): Temp Pulse Resp BP Pulse Ox 98.3 F 78 22 111/47 L 97 09/11/17 08:47 09/11/17 17:10 09/11/17 08:47 09/11/17 17:10 09/11/17 08:47 - Medications Medications: Current Medications Acetaminophen (Tylenol 325mg Tab) 650 mg PO Q6 PRN PRN Reason: Other Last Admin: 09/11/17 14:01 Dose: 650 mg Alprazolam (Xanax) 0.25 mg PO HS PRN PRN Reason: Insomnia Stop: 09/17/17 22:01 Last Admin: 09/10/17 21:52 Dose: 0.25 mg Amlodipine Besylate (Norvasc) 5 mg PO BID [facility] Last Admin: 09/11/17 17:10 Dose: Not Given Aspirin (Aspirin Chewable) 81 mg PO DAILY [facility] Last Admin: 09/11/17 08:58 Dose: 81 mg Enoxaparin Sodium (Lovenox) 40 mg SC DAILY [facility] PRN Reason: Protocol Last Admin: 09/11/17 08:57 Dose: 40 mg Fluoxetine HCl (Prozac) 20 mg PO DAILY [facility] Last Admin: 09/11/17 08:58 Dose: 20 mg Lisinopril (Zestril) 10 mg PO DAILY [facility] Last Admin: 09/11/17 08:59 Dose: Not Given Metoprolol Succinate (Toprol Xl) 50 mg PO HS [facility] Last Admin: 09/10/17 21:53 Dose: 50 mg Ondansetron HCl (Zofran Tab) 4 mg PO Q4 PRN PRN Reason: Nausea/Vomiting Pantoprazole Sodium (Protonix Susp) 40 mg PO DAILY@0630 [facility] Last Admin: 09/11/17 06:16 Dose: 40 mg Pravastatin Sodium (Pravachol) 40 mg PO HS [facility] Last Admin: 09/10/17 21:53 Dose: 40 mg Sucralfate (Carafate Tab) 1 gm PO DAILY [facility] Last Admin: 09/11/17 08:58 Dose: 1 gm Tramadol HCl (Ultram) 50 mg PO Q6 PRN PRN Reason: Pain, severe (8-10) - Labs Labs: 09/11/17 05:00 09/11/17 05:00 PT 11.9 Seconds (9.8-13.1) 09/05/17 05:35 INR 1.1 (0.9-1.2) 09/05/17 05:35 APTT 34.2 Seconds (25.6-37.1) 09/05/17 05:35
[2017-09-11 20:27] VITALS: RESP 20
[2017-09-11] MEDS: Pravastatin Sodium 40 MG TAB PO SCH (21:40)
[2017-09-11] MEDS: Metoprolol Succinate 50 mg XL Tab PO SCH (21:41)
[2017-09-12] MEDS: Pantoprazole 40 mg Susp UD PO SCH (06:07)
[2017-09-12] MEDS: Enoxaparin 40 mg Syringe SC SCH (08:17)
--- NOTE | 2017-09-12 13:26 | PSY.TMCNF ---
Nursing - Vital Signs Vital Signs (Last 8 hours): Vital Signs 09/12/17 09/12/17 09/12/17 08:17 08:19 08:48 Temperature 97.7 F Pulse Rate 77 77 93 H Respiratory 20 Rate Blood Pressure 126/61 126/61 126/61 O2 Sat by Pulse 98 Oximetry 09/12/17 09:00 Temperature 97.7 F Pulse Rate 93 H Respiratory 20 Rate Blood Pressure 126/61 O2 Sat by Pulse Oximetry Pain: 2 - Medications/Other Issues Comment: Pt at moderate nutritional risk. 1. Pt to consume 75-100% of meals( partially met, continue). 2. Deter wt loss(NA, continue). Follow-up due on - Skin Incision Site: RLE Dressing Status: Clean, Dry, Intact Incision: Brandon Intact Incision Line Treatment: Cleanse with NS, pat dry, then cover with dry dressing. - Bladder Management Bladder Pattern: Normal Voiding Method: Toilet - Bowel Management Bowel Pattern: Normal - Goals/Time Frame Comments: Pt was seen awake and alert sitting up in bed. Pt agreeable to visit. Pt was able to identify her leisure interests such as dancing, swimming, taking care of grandson, and enjoys doing word searches. Pt provided with word searches at end of session. Pt agreeable to participate in tasks throughout stay. Pt's mood was stable-positive and did not c/o any pain during visit. Physical Therapy - Bed Mobility Bed Mobility: Modified Independent - Transfers Wheelchair to Mat: Modified Independent Sit to Stand: Modified Independent - Ambulation Level of Assistance: Modified Independent, Supervision Distance (ft.): 1,000 Assistive Devices: Single point cane Comment: -1000 feet on all surfaces with SPc with DS. -mod I on level surfaces indoors. -ambulated out doors on sidewalks, concrete, pavers, tile, across elevator thresholds and through accessible automatic doors with S. -VCs to ensure safety with sequencing and reduce speed to ensure safety with all mobility/gait - Stair Negotiation Comment: mod I with ramps. mod I with curbs - Standing Balance Static Stand: Modified [place] with assistive device Dynamic Stand: Modified [place] with Assistive Device, Supervision - Pain Pain (assessed during therapy session): 3 Management Techniques: Ice, Position Change, Elevation, Distraction, Relaxation Techniques, Exercise, Inactivity Comment: R hip - Insight/Carryover Insight/Carryover: Good - Patient/Family Education Comment: safety, mobility, fall reduction, use of call harrell, POC, goals, therapy schedule, requesting assistance, HEP, continued therapies, home modifications, DME - Assessment/Plan Assessment: Pt is agreeable to participate in recreation therapy sessions. Pt is independent with leisure tasks following orientation to tasks. Pt tolerates duration of sessions and participated in tapple, bingo, and 5 second rule task. Pt's mood is stable-positive throughout stay and has word finds to complete during her free time. - Goals Timeframe: 3 days Goals: I with bed/mat mobility. mod I x 1000 feet with SPC for gait on all surfaces. mod I x 1 flight of steps with single rail and SPC - Provider License Number: [id number] Occupational Therapy - Arousal/Attention/Orientation Patient Orientation: Person, Place, Time, Appropriate to Age, Appropriate to Situation - ADL/IADL Self Feeding: Set-up Help Grooming: Set-up Help Bathing-Upper Extremity: Supervision Bathing-Lower Extremity: Supervision, Contact Guard Dressing-Upper Extremity: Set-up Help Dressing-Lower Extremity: Supervision - Sitting Balance Static Sitting: Independent without upper extremity support Dynamic Sitting: Requires supervision - Transfers Wheelchair to Bed Transfers: Supervision Toilet Transfers: Supervision Tub Transfers: Supervision - Upper Extremity Status Right Upper Extremity Comment: 4 fingers fused R hand. AROM WFL Left Upper Extremity Comment: AROM WFL - Pain Pain (assessed during therapy session): 3 Alleviating Techniques: Ice, Position Change, Elevation, Distraction, Relaxation Techniques, Exercise, Inactivity Comment: R hip - Insight/Carryover Insight/Carryover: Good - Patient/Family Education Comment: safety, mobility, fall reduction, use of call harrell, POC, goals, therapy schedule, requesting assistance, HEP, continued therapies, home modifications, DME - Assessment/Plan Assessment: Pt is agreeable to participate in recreation therapy sessions. Pt is independent with leisure tasks following orientation to tasks. Pt tolerates duration of sessions and participated in tapple, bingo, and 5 second rule task. Pt's mood is stable-positive throughout stay and has word finds to complete during her free time. - Goals Timeframe: 3 days Goals: I with bed/mat mobility. mod I x 1000 feet with SPC for gait on all surfaces. mod I x 1 flight of steps with single rail and SPC - Provider Therapist: Sylvie Mccarthy, OTR/L Speech Therapy - Plan Assessment: Pt is agreeable to participate in recreation therapy sessions. Pt is independent with leisure tasks following orientation to tasks. Pt tolerates duration of sessions and participated in tapple, bingo, and 5 second rule task. Pt's mood is stable-positive throughout stay and has word finds to complete during her free time. Recreational Therapy - Participation Participation: Participates in Individual and/or Group Sessions, Monitors His/ Her Own Leisure Time - Attendance Attendance: Daily - Activities Leisure Activities: Socializing - Socialization Level of Socialization: Initiates/interacts freely with care givers and peer - Diversional Time Diversional Time: word finds in room, socializing - Assessment Assessment/Plan: Pt is agreeable to participate in recreation therapy sessions. Pt is independent with leisure tasks following orientation to tasks. Pt tolerates duration of sessions and participated in tapple, bingo, and 5 second rule task. Pt's mood is stable-positive throughout stay and has word finds to complete during her free time. Problems Currently Limiting Participation: pain at times Goals and Time Frame: Pt will be encouraged to participate in 1:1 and group recreation therapy sessions 3-5x week to improve activity tolerance level, arousal level, and leisure awareness level. - Provider Therapist: Winifred Childers, [employer] #[id number] Nutrition - Current Diet Current Diet/ Supplement/ Feedings: heart healthy ensure plus 8 ounces 2 per day - Appetite Percent Meal Consumed: 75-100% - Assessment/Goals/Time Frame Assessment/Goals/Time Frame: Pt at moderate nutritional risk. 1. Pt to consume 75-100% of meals(partially met, continue). 2. Deter wt loss(NA, continue). Follow-up due on 09/15/2017 - Provider Provider: Oumou Ruiz RD Case Management - Discharge Plan Discharge Plan: Home with significant other/family Rehabilitation Plan - Treatment Plan Treatment Plan: Physical Therapy, Occupational Therapy, Patient/Family Education - Discharge Plan Estimated Date of Discharge: 09/13/17 Discharge to: Home
--- NOTE | 2017-09-12 14:02 | CP.PCM.PN ---
Subjective - Date & Time of Evaluation Date of Evaluation: 09/12/17 Time of Evaluation: 14:01 - Subjective Subjective: Patient seen in the room doing great I removed the brandy without an issue didn't need but applied steristrips can shower tomorrow prior to d/c Objective - Vital Signs/Intake and Output Vital Signs (last 24 hours): Temp Pulse Resp BP Pulse Ox 97.7 F 93 H 20 126/61 98 09/12/17 09:00 09/12/17 09:00 09/12/17 09:00 09/12/17 09:00 09/12/17 08:48 - Medications Medications: Current Medications Acetaminophen (Tylenol 325mg Tab) 650 mg PO Q6 PRN PRN Reason: Other Last Admin: 09/11/17 23:51 Dose: 650 mg Alprazolam (Xanax) 0.25 mg PO HS PRN PRN Reason: Insomnia Stop: 09/17/17 22:01 Last Admin: 09/11/17 22:29 Dose: 0.25 mg Amlodipine Besylate (Norvasc) 5 mg PO BID [facility] Last Admin: 09/12/17 08:17 Dose: 5 mg Aspirin (Aspirin Chewable) 81 mg PO DAILY [facility] Last Admin: 09/12/17 08:17 Dose: 81 mg Enoxaparin Sodium (Lovenox) 40 mg SC DAILY [facility] PRN Reason: Protocol Last Admin: 09/12/17 08:17 Dose: 40 mg Fluoxetine HCl (Prozac) 20 mg PO DAILY [facility] Last Admin: 09/12/17 08:18 Dose: 20 mg Lisinopril (Zestril) 10 mg PO DAILY [facility] Last Admin: 09/12/17 08:19 Dose: 10 mg Metoprolol Succinate (Toprol Xl) 50 mg PO HS [facility] Last Admin: 09/11/17 21:41 Dose: Not Given Ondansetron HCl (Zofran Tab) 4 mg PO Q4 PRN PRN Reason: Nausea/Vomiting Pantoprazole Sodium (Protonix Susp) 40 mg PO DAILY@0630 [facility] Last Admin: 09/12/17 06:07 Dose: 40 mg Pravastatin Sodium (Pravachol) 40 mg PO HS [facility] Last Admin: 09/11/17 21:40 Dose: 40 mg Sucralfate (Carafate Tab) 1 gm PO DAILY [facility] Last Admin: 09/12/17 08:17 Dose: 1 gm Tramadol HCl (Ultram) 50 mg PO Q6 PRN PRN Reason: Pain, severe (8-10) - Labs Labs: 09/11/17 05:00 09/11/17 05:00 PT 11.9 Seconds (9.8-13.1) 09/05/17 05:35 INR 1.1 (0.9-1.2) 09/05/17 05:35 APTT 34.2 Seconds (25.6-37.1) 09/05/17 05:35
[2017-09-12] MEDS: Metoprolol Succinate 50 mg XL Tab PO SCH (21:00)
[2017-09-12] MEDS: Pravastatin Sodium 40 MG TAB PO SCH (21:18)
[2017-09-13] MEDS: Pantoprazole 40 mg Susp UD PO SCH (06:31)
[2017-09-13 08:40] VITALS: PULSE 95; TEMP 98.5; O2SAT 99
[2017-09-13] MEDS: Enoxaparin 40 mg Syringe SC SCH (08:48)
[2017-09-13 08:49] VITALS: BP 123/56
--- NOTE | 2017-09-13 10:47 | CP.PCM.DIS ---
Provider - Provider Date of Admission: 09/04/17 19:25 Attending physician: Behzad Reis MD Consults: Dr Power Time Spent in preparation of Discharge (in minutes): 25 Diagnosis - Discharge Diagnosis (1) Status post total hip replacement, left Status: Acute Comment: did well with PT/OT (2) Scleroderma involving lung Status: Chronic Comment: continue Protonix and Carafate (3) HTN (hypertension) Status: Chronic Comment: BP stable. continue Metoprolol, Amlodipine and Lisinopril Hospital Course - Lab Results Lab Results: Most Recent Lab Values WBC 6.1 K/uL (4.8-10.8) 09/11/17 05:00 RBC 3.08 Mil/uL (3.80-5.20) L 09/11/17 05:00 Hgb 8.9 g/dL (12.0-16.0) L 09/11/17 05:00 Hct 26.7 % (34.0-47.0) L 09/11/17 05:00 MCV 86.6 fl (81.0-99.0) 09/11/17 05:00 MCH 28.9 pg (27.0-31.0) 09/11/17 05:00 MCHC 33.4 g/dL (33.0-37.0) 09/11/17 05:00 RDW 15.1 % (11.5-14.5) H 09/11/17 05:00 Plt Count 305 K/uL (130-400) 09/11/17 05:00 MPV 9.2 fl (7.2-11.7) 09/05/17 05:35 Neut % (Auto) 55.9 % (50.0-75.0) 09/05/17 05:35 Lymph % (Auto) 31.4 % (20.0-40.0) 09/05/17 05:35 Moffat % (Auto) 11.2 % (0.0-10.0) H 09/05/17 05:35 Eos % (Auto) 1.2 % (0.0-4.0) 09/05/17 05:35 Baso % (Auto) 0.3 % (0.0-2.0) 09/05/17 05:35 Neut # (Auto) 2.7 K/uL (1.8-7.0) 09/05/17 05:35 Lymph # (Auto) 1.5 K/uL (1.0-4.3) 09/05/17 05:35 [place]offat # (Auto) 0.5 K/uL (0.0-0.8) 09/05/17 05:35 Eos # (Auto) 0.1 K/uL (0.0-0.7) 09/05/17 05:35 Baso # (Auto) 0.0 K/uL (0.0-0.2) 09/05/17 05:35 PT 11.9 Seconds (9.8-13.1) 09/05/17 05:35 INR 1.1 (0.9-1.2) 09/05/17 05:35 APTT 34.2 Seconds (25.6-37.1) 09/05/17 05:35 Sodium 142 mmol/l (132-148) 09/11/17 05:00 Potassium 4.4 MMOL/L (3.6-5.0) 09/11/17 05:00 Chloride 106 mmol/L (98-107) 09/11/17 05:00 Carbon Dioxide 25 mmol/L (22-30) 09/11/17 05:00 Anion Gap 15 (10-20) 09/11/17 05:00 BUN 14 mg/dl (7-17) 09/11/17 05:00 Creatinine 0.6 mg/dl (0.7-1.2) L 09/11/17 05:00 Est GFR ( Amer) > 60 09/11/17 05:00 Est GFR (Non-Af Amer) > 60 09/11/17 05:00 Random Glucose 94 mg/dL (65-105) 09/11/17 05:00 Calcium 8.8 mg/dL (8.4-10.2) 09/11/17 05:00 Total Bilirubin 1.6 mg/dl (0.2-1.3) H 09/05/17 05:35 AST 27 U/L (14-36) 09/05/17 05:35 ALT 21 U/L (9-52) 09/05/17 05:35 Alkaline Phosphatase 66 U/L (38-126) 09/05/17 05:35 Total Protein 7.2 G/DL (6.3-8.2) 09/05/17 05:35 Albumin 3.7 g/dL (3.5-5.0) 09/05/17 05:35 Globulin 3.5 gm/dL (2.2-3.9) 09/05/17 05:35 Albumin/Globulin Ratio 1.0 (1.0-2.1) 09/05/17 05:35 Vitamin B12 974 pg/mL (239-931) H 09/05/17 10:28 Folate > 20.0 ng/mL 09/05/17 10:28 - Hospital Course Hospital Course: 71 yo female with history of Scleroderma had Left THR in [facility] on 09/01/17 after sustaining closed left hip fracture from a fall. She was transferred to [facility] on 09/04/17 and underwent PT/OT. Patient did well and now is ready for discharged. Discharge Exam - Head Exam Head Exam: ATRAUMATIC - Eye Exam Eye Exam: absent: Scleral icterus - ENT Exam ENT Exam: Mucous Membranes Moist - Respiratory Exam Respiratory Exam: absent: Rales, Rhonchi, Wheezes, Respiratory Distress - Cardiovascular Exam Cardiovascular Exam: REGULAR RHYTHM, +S1, +S2 - GI/Abdominal Exam GI & Abdominal Exam: Soft. absent: Tenderness - Rectal Exam Rectal Exam: Deferred - Back Exam Back exam: NORMAL INSPECTION - Neurological Exam Neurological exam: Alert, Oriented x3 - Psychiatric Exam Psychiatric exam: Normal Affect - Skin Skin Exam: Dry, Intact Discharge Plan - Follow Up Plan Condition: GOOD Disposition: HOME/ ROUTINE
== END 2017-09-13 13:30 | disposition home or self-care (01) | DRG 560 ==
PROVIDERS: ADMIT Internal Medicine; ATTEND Internal Medicine
PROC: F07Z9FZ Gait Training/Functional Ambulation Treatment using Assistive, Adaptive, Supportive or Protective Equipment (ICD-10-PCS; principal; 2017-09-04)
PROC: F08Z4FZ Home Management Treatment using Assistive, Adaptive, Supportive or Protective Equipment (ICD-10-PCS; 2017-09-04)
PROC: F07L6FZ Therapeutic Exercise Treatment of Musculoskeletal System - Lower Back / Lower Extremity using Assistive, Adaptive, Supportive or Protective Equipment (ICD-10-PCS; 2017-09-05)
DX: Z47.1 Aftercare following joint replacement surgery (principal); M34.81 Systemic sclerosis with lung involvement; Z96.642 Presence of left artificial hip joint; D50.0 Iron deficiency anemia secondary to blood loss (chronic); E87.5 Hyperkalemia; K21.9 Gastro-esophageal reflux disease without esophagitis; I10 Essential (primary) hypertension; F41.9 Anxiety disorder, unspecified; F32.9 Major depressive disorder, single episode, unspecified; Z87.891 Personal history of nicotine dependence; Z90.49 Acquired absence of other specified parts of digestive tract